=== PATIENT | male | born 1990 | race Caucasian/White ===

== ENCOUNTER 2019-03-02 09:31 | Observation (INO) | payer BC ==
[2019-03-02] MEDS ORDERED: Famotidine 20 MG/2 ML SDV IVPUSH ONE (09:43)
--- NOTE | 2019-03-02 09:43 | EDM.PDOC ---
ED HPI GENERAL MEDICAL PROBLEM - General Chief Complaint: General Stated Complaint: chest discomfort/soreness Time Seen by Provider: 03/02/19 09:31 Source of Information: Reports: Patient, Family (Mother), Old Records ([facility] EMR. No paper hospital chart available.) - History of Present Illness INITIAL COMMENTS - FREE TEXT/NARRATIVE: The patient drove himself to the emergency room for evaluation of nonspecific 6- 9/10 anterior chest wall pain with symptoms waking him up at about 1 AM this morning. He denies any recent excessive exercise, injury, etc. and has not had similar symptoms in the past. He has not taken any medications or use topical treatments for his symptoms to this point. The patient denies any chest pressure , heart flutter, dizziness, orthostasis, orthopnea, diaphoresis, paresthesias, recent decreased exercise tolerance, or any other anginal-type symptoms. No recent history of abdominal pain, heartburn, nausea, diarrhea, melena, gross hematochezia, or any food intolerance, including fatty foods, etc.. The patient also denies any recent fever, cough, wheezing, dyspnea, etc.. He denies any gross hematuria, colic, current UTI symptoms. Onset: Today, Sudden Onset Date: 03/02/19 Onset Time: 13:00 Duration: Constant Location: Reports: Chest. Denies: Head, Face, Neck, Abdomen, Back, Pelvis, Upper Extremity, Left, Upper Extremity, Right, Lower Extremity, Left, Radiates to Quality: Reports: Ache, Sharp, Stabbing Severity: Moderate Improves with: Reports: Rest Worsens with: Reports: Movement Context: Reports: Other (As above). Denies: Sick Contact, Trauma Associated Symptoms: Reports: Chest Pain. Denies: Confusion, Cough, Diaphoresis , Fever/Chills, Headaches, Loss of Appetite, Malaise, Nausea/Vomiting, Rash, Shortness of Breath, Syncope, Weakness Treatments [employer]: Reports: Other (see below) (None) Anterior Chest Pain Score (Numeric/FACES): 9 - Related Data Allergies Allergy/AdvReac Type Severity Reaction Status Date / Time No Known Allergies Allergy Verified 03/02/19 09:35 Home Meds: Home Meds Insulin Aspart [NovoLOG] 0 units SQ TIDMEALS 08/26/18 [History] Insulin Glarg,Human.Rec.Analog [Lantus] 48 unit SUBCUT DAILY 08/26/18 [History] Past Medical History HEENT History: Reports: None. Denies: Allergic Rhinitis, Cataract, Glaucoma, Hard of Hearing, Impaired Vision, Macular Degeneration, Retinal Detachment Cardiovascular History: Reports: None. Denies: Afib, Aneurysm, Arrhythmia, Blood Clots/VTE/DVT, CAD, Heart Failure, Heart Murmur, High Cholesterol, Hypertension, ND, PVD, Syncope Respiratory History: Reports: Asthma, Other (See Below). 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 Gastrointestinal History: Reports: None, Gastritis, GERD. Denies: Celiac Disease, Cholelithiasis, Chronic Constipation, Chronic Diarrhea, Colon Polyp, Diverticulosis, Fecal Incontinence, GI Bleed, Hepatitis, Hiatal Hernia, Irritable Bowel Syndrome, Jaundice, Pancreatitis, PUD Genitourinary History: Reports: None. Denies: Acute Renal Failure, BPH, Chronic Renal Insuffiency, Renal Calculus, STD, Urinary Incontinence, UTI, Recurrent Musculoskeletal History: Reports: Fracture, Other (See Below). Denies: Arthritis, Back Pain, Chronic, Gout, Neck Pain, Chronic, Osteoarthritis, RA, SLE Other Musculoskeletal History: Left wrist at age 16. Right posterior mandible at age 26. Neurological History: Reports: None. Denies: Cerebral Aneurysms, Concussion, CVA, Headaches, Chronic, Head Trauma, Migraines, MS, Neuropathy, Diabetic, Neuropathy, Peripheral, Parkinson's, Seizure, TIA, Vertigo Psychiatric History: Reports: None. Denies: Abuse, Victim of, ADD, ADHD, Addiction, Anxiety, Depression, Psych Hospitalization(s), PTSD, Suicide Attempt , Suicidal Ideation Endocrine/Metabolic History: Reports: Diabetes, Type I, IDDM, Other (See Below) . Denies: Diabetes, Gestational, Diabetes, Type II, Diabetes Mellitus, Type 3c , Hypothyroidism Other Endocrine/Metabolic History: Type 1 IDDM at age 16. Hematologic History: Reports: None. Denies: Anemia, Blood Transfusion(s), Iron Deficiency Immunologic History: Reports: None. Denies: AIDS, HIV, SLE Oncologic (Cancer) History: Reports: None. Denies: Basal Cell Carcinoma, Hodgkin's Lymphoma, Leukemia, Lymphoma, Malignant Melanoma, Non-Hodgkin's Lymphoma, Squamous Cell Carcinoma Dermatologic History: Reports: None. Denies: Eczema, Psoriasis - Infectious Disease History Infectious Disease History: Reports: Chicken Pox. Denies: C-Difficile, Measles , Meningitis, Mononucleosis, MRSA, Mumps, Pertussis (Whooping Cough), Rheumatic Fever, Rubella, Scarlet Fever, Shingles, TB, VRE - Past Surgical History Head Surgeries/Procedures: Reports: None HEENT Surgical History: Reports: Adenoidectomy, Tonsillectomy, Other (See Below) . Denies: Eye Surgery, Laser Surgery, LASIK, Myringotomy w Tube(s), Naso-Sinus Surgery, Oral Surgery Other HEENT Surgeries/Procedures: Tonsillectomy and adenoidectomy at age 7. Cardiovascular Surgical History: Reports: None. Denies: Varicose Respiratory Surgical History: Reports: None. Denies: Thoracentesis GI Surgical History: Reports: None. Denies: Appendectomy, Cholecystectomy, Colonoscopy, EGD, Hernia, Abdominal, Hernia, Inguinal, Hernia Repair/Other Male Surgical History: Reports: Circumcision, Other (See Below). Denies: Vasectomy Other Male Surgeries/Procedures: Circumcision as an . Endocrine Surgical History: Reports: None. Denies: Thyroid Biopsy Neurological Surgical History: Reports: None. Denies: C-Spine, Discectomy, Laminectomy, Lumbar Spine, Sacral Spine, Spinal Fusion, Vertebroplasty Musculoskeletal Surgical History: Reports: None. Denies: Arthroscopic Procedure , Carpal Tunnel, Ganglion Cyst, Joint Replacement, ORIF, Shoulder Surgery Oncologic Surgical History: Reports: None Dermatological Surgical History: Reports: None - Past Imaging History Past Imaging History: Reports: None Social & Family History - Family History HEENT: Reports: None. Denies: Glaucoma, Macular Degeneration, Retinal Detachment Cardiac: Reports: Arrhythmia, Heart Murmur, Other (See Below). Denies: Afib, Aneurysm, Blood Clots/VTE/DVT, High Cholesterol, Hypertension, ND, PVD/COD, Syncope Other Cardiac Family History: Father with WPW syndrome with known type of valvular disorder. Hypertension in maternal and paternal grandmothers and and maternal grandfather Respiratory: Reports: Asthma, Sleep Apnea, Other (See Below). Denies: COPD, PE , Pneumothorax Other Respiratory Family Hisory: Mother with asthma. Paternal grandfather with sleep apnea. GI: Reports: Cholelithiasis, Other (See Below). Denies: Celiac Disease, Colon Polyps, GERD, Inflammatory Bowel Disease, Irritable Bowel Syndrome, PUD Other GI Family History: Mother with cholecystectomy. : Reports: Diabetic Nephropathy, Renal Calculus, Renal Disease/Insufficiency. Denies: Dialysis Other Family History: Maternal grandmother with renal failure and diabetic nephropathy. Maternal grandfather with urolithiasis. OBGYN: Reports: None. Denies: Endometriosis, Recurrent Spontaneous Musculoskeletal: Reports: Arthritis, Gout, Other (See Below). Denies: RA, SLE Other Musculoskeletal Family History: Maternal grandmother with gout. Neurological: Reports: None. Denies: Alzheimers Disease, CVA, Dementia, Migraines, MS, Parkinson's, Seizure, TIA Psychiatric: Reports: Anxiety, Depression, Psych Hospitalization(s), Other (See Below). Denies: Abuse, Victim of, ADD, ADHD, PTSD, Suicide Attempt Other Psychiatric Family History: Anxiety depression disorder in father with history of suicidal ideation and history of inpatient care. Endocrine/Metabolic: Reports: Diabetes, type II, IDDM, Other (See Below). Denies: Diabetes, Type I, Hypothyroidism Other Endocrine/Metabolic Family History: Maternal grandmother with diabetes mellitus. Hematologic: Reports: None. Denies: Anemia, SLE Immunologic: Reports: None. Denies: AIDS, HIV, SLE Dermatologic: Reports: None. Denies: Eczema, Psoriasis Oncologic: Reports: None. Denies: Colon, Hodgkin's Lymphoma, Leukemia, Lymphoma , Non-Hodgkin's Lymphoma, Prostate, Skin - Tobacco Use Smoking Status *Q: Never Smoker Tobacco Use Within Last Twelve Months: No Used Tobacco, but Quit: No Smoking Cessation Information Provided To Patient: No Second Hand Smoke Exposure: No Second Hand Smoke Education Provided: No - Caffeine Use Caffeine Use: Reports: Coffee (34 pots per day), Soda (1 soda per week). Denies: Energy Drinks, Tea - Alcohol Use Alcohol Use History: Yes Days Per Week of Alcohol Use: 2 Number of Drinks Per Day: 5 Number of Drinks Per Day Comment: Usually beer. DWI at age 24 with no history of alcohol abuse or treatment. 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 ED EXAM, GENERAL - Physical Exam Exam: See Below Exam Limited By: No Limitations General Appearance: Alert, WD/WN, No Apparent Distress Eye Exam: Bilateral Eye: EOMI, Normal Inspection (No nystagmus), PERRL Ears: Normal External Exam, Normal Canal, Hearing Grossly Normal, Normal TMs Nose: Normal Inspection, Normal Mucosa, No Blood Throat/Mouth: Normal Inspection, Normal Lips, Normal Teeth, Normal Gums, Normal Oropharynx, Normal Voice, No Airway Compromise. No: Dysphagia, Perioral Cyanosis Head: Atraumatic, Normocephalic. No: Facial Swelling, Facial Tenderness, Sinus Tenderness Neck: Normal Inspection, Supple, Non-Tender, Full Range of Motion. No: Lymphadenopathy (L), Lymphadenopathy (R), Thyromegaly Respiratory/Chest: No Respiratory Distress, Lungs Clear, Normal Breath Sounds, No Accessory Muscle Use. No: Chest Non-Tender (Moderate reproducible anterior mid and superior chest wall discomfort.), Pleural Rub, Retractions Cardiovascular: Normal Peripheral Pulses, Regular Rate, Rhythm, No Edema, No Gallop, No JVD, No Murmur, No Rub. No: Gallop/S3, Gallop/S4, Friction Rub Peripheral Pulses: 2+: Radial (L), Radial (R), Dorsalis Pedis (L), Dorsalis Pedis (R) GI/Abdominal: Normal Bowel Sounds, Soft, Non-Tender, No Organomegaly, No Distention, No Abnormal Bruit, No Mass, Pelvis Stable. No: Guarding (Male) Exam: Deferred Rectal (Males) Exam: Deferred Back Exam: Normal Inspection, Full Range of Motion. No: CVA Tenderness (L), CVA Tenderness (R), Muscle Spasm Extremities: Normal Inspection, Normal Range of Motion, Non-Tender, No Pedal Edema, Normal Capillary Refill. No: Sigrid's Sign Neurological: Alert, Oriented, CN II-XII Intact, Normal Cognition, Normal Gait, No Motor/Sensory Deficits Psychiatric: Normal Affect, Normal Mood Skin Exam: Warm, Dry, Intact, Normal Color, No Rash. No: Diaphoretic, Ecchymosis, Petechiae, Wound/Incision Lymphatic: No Adenopathy EKG INTERPRETATION EKG Date: 03/02/19 Time: 09:53 Rhythm: NSR Rate (Beats/Min): 75 [place]: Normal P-Wave: Present (Mild diffuse biphasic P waves) QRS: Normal (0.09 seconds) ST-T: Normal QT: Normal OH/PQ Interval: 0.14 seconds with pulmonary hypertension by EKG. Comparison: NA - No Prior EKG EKG Interpretation Comments: 1. No acute ischemic changes 2. Pulmonary hypertension by EKG Course - Vital Signs Last Recorded V/S: Last Vital Signs Temp 36.9 C 03/02/19 09:34 Pulse 80 03/02/19 09:34 Resp 16 03/02/19 09:34 BP 121/75 03/02/19 09:34 Pulse Ox 100 03/02/19 09:34 Vital Signs - 24 hr 03/02/19 03/02/19 03/02/19 09:34 09:48 10:18 Temperature [ 36.9 C Oral] Pulse, 80 84 81 Peripheral [ Right Pulse Oximetry] Respiratory 16 12 13 Rate Blood Pressure 121/75 130/82 119/76 [Left Upper Arm ] O2 Sat by Pulse 100 100 100 Oximetry 03/02/19 11:03 Temperature [ Oral] Pulse, 82 Peripheral [ Right Pulse Oximetry] Respiratory 14 Rate Blood Pressure 133/83 [Left Upper Arm ] O2 Sat by Pulse 100 Oximetry - Orders/Labs/Meds Orders: Active Orders 24 hr Category Date Time Status Cardiac Monitoring [RC] . DIRECTED Care 03/02/19 09:44 Active EKG Documentation Completion [RC] ASDIRECTED Care 03/02/19 09:44 Active Oxygen Therapy, ED [RC] PRN Care 03/02/19 09:44 Active Peripheral IV Care [RC] . DIRECTED Care 03/02/19 09:44 Active Pulse Oximetry [RC] CONTINUOUS Care 03/02/19 09:44 Active Up With Assistance [RC] PFP Care 03/02/19 09:44 Active Vital Signs [RC] PFP Care 03/02/19 09:44 Active Nothing per Oral Now Diet [DIET] Diet 03/02/19 Breakfast Active Chest 1V Frontal [CR] Stat Exams 03/02/19 09:44 Taken Lactated Ringers [Ringers, Lactated] 1,000 ml Med 03/02/19 10:41 Active IV .BOLUS Sodium Chloride 0.9% [Saline Flush] Med 03/02/19 09:43 Active 10 ml FLUSH ASDIRECTED PRN Obtain Past Medical Record [OM.PC] Urgent Oth 03/02/19 09:44 Active Peripheral IV Insertion Adult [OM.PC] Stat Oth 03/02/19 09:44 Ordered Resuscitation Status Stat Resus Stat 03/02/19 09:43 Ordered Medication Orders Lactated Ringer's (Ringers, Lactated) 1,000 mls @ 999 mls/hr IV .BOLUS ONE Stop: 03/02/19 11:41 Last Admin: 03/02/19 11:01 Dose: 999 mls/hr Sodium Chloride (Saline Flush) 10 ml FLUSH ASDIRECTED PRN PRN Reason: Keep Vein Open Last Admin: 03/02/19 11:02 Dose: 10 ml Admin: 03/02/19 11:01 Dose: 10 ml Admin: 03/02/19 10:08 Dose: 10 ml Labs: Laboratory Tests 03/02/19 03/02/19 03/02/19 Range/Units 09:52 09:52 09:52 WBC 11.0 H (4.0-10.2) K/uL RBC 5.13 (4.33-5.41) M/uL Hgb 15.9 (13.1-16.8) g/dL Hct 44.7 (39.0-49.0) % MCV 87.1 (84.0-98.0) fL MCH 31.0 (28.2-33.3) pg MCHC 35.6 (31.7-36.0) g/dL RDW 12.7 (11.2-14.1) % Plt Count 261 (150-350) K/uL Neut % (Auto) 76.3 (45.0-80.0) % Lymph % (Auto) 15.0 (10.0-50.0) % Thayer % (Auto) 8.3 (2.0-14.0) % Eos % (Auto) 0.3 (0.0-5.0) % Baso % (Auto) 0.1 (0.0-2.0) % Neut # (Auto) 8.41 H (1.40-7.00) K/uL Lymph # (Auto) 1.65 (0.50-3.50) K/uL Thayer # (Auto) 0.91 (0.00-1.00) K/uL Eos # (Auto) 0.03 (0.00-0.50) K/uL Baso # (Auto) 0.01 (0.00-0.20) K/uL PT 10.7 (9.5-12.0) SEC INR 1.0 APTT 26.1 (21.0-31.3) SEC D-Dimer, Quantitative 123 (0-400) ng/mL Sodium (136-145) mmol/L Potassium (3.5-5.1) mmol/L Chloride (98-107) mmol/L Carbon Dioxide (21.0-32.0) mmol/L BUN (7-18) mg/dL Creatinine (0.51-1.17) mg/dL Est Cr Clr Drug Dosing Estimated GFR (MDRD) mL/min Glucose (74-106) mg/dL Lactic Acid (0.4-2.0) mmol/L Uric Acid (2.6-7.2) mg/dL Calcium (8.5-10.1) mg/dL Magnesium (1.8-2.4) mg/dL Total Bilirubin (0.2-1.0) mg/dL AST (15-37) U/L ALT (12-78) U/L Alkaline Phosphatase (46-116) IU/L Creatine Kinase (26-308) U/L Creatine Kinase Index (0.0-2.5) % CK-MB (CK-2) (0.00-3.60) ng/mL Troponin I (0.000-0.056) ng/mL C-Reactive Protein (<=0.9) mg/dL NT-Pro-B Natriuret Pep (0-125) pg/mL Total Protein (6.4-8.2) g/dL Albumin (3.4-5.0) g/dL TSH, Ultra Sensitive (0.358-3.740) mIU/mL 08/09/19 08/09/19 08/09/19 Range/Units 09:52 09:52 09:52 WBC (4.0-10.2) K/uL RBC (4.33-5.41) M/uL Hgb (13.1-16.8) g/dL Hct (39.0-49.0) % MCV (84.0-98.0) fL MCH (28.2-33.3) pg MCHC (31.7-36.0) g/dL RDW (11.2-14.1) % Plt Count (150-350) K/uL Neut % (Auto) (45.0-80.0) % Lymph % (Auto) (10.0-50.0) % Thayer % (Auto) (2.0-14.0) % Eos % (Auto) (0.0-5.0) % Baso % (Auto) (0.0-2.0) % Neut # (Auto) (1.40-7.00) K/uL Lymph # (Auto) (0.50-3.50) K/uL Thayer # (Auto) (0.00-1.00) K/uL Eos # (Auto) (0.00-0.50) K/uL Baso # (Auto) (0.00-0.20) K/uL PT (9.5-12.0) SEC INR APTT (21.0-31.3) SEC D-Dimer, Quantitative (0-400) ng/mL Sodium 139 (136-145) mmol/L Potassium 3.9 (3.5-5.1) mmol/L Chloride 104 (98-107) mmol/L Carbon Dioxide 31.7 (21.0-32.0) mmol/L BUN 12 (7-18) mg/dL Creatinine 0.87 (0.51-1.17) mg/dL Est Cr Clr Drug Dosing TNP Estimated GFR (MDRD) > 60 mL/min Glucose 211 H (74-106) mg/dL Lactic Acid 1.2 (0.4-2.0) mmol/L Uric Acid 4.1 (2.6-7.2) mg/dL Calcium 8.4 L (8.5-10.1) mg/dL Magnesium 1.9 (1.8-2.4) mg/dL Total Bilirubin 0.3 (0.2-1.0) mg/dL AST 25 (15-37) U/L ALT 24 (12-78) U/L Alkaline Phosphatase 58 (46-116) IU/L Creatine Kinase 1379 H (26-308) U/L Creatine Kinase Index 0.2 (0.0-2.5) % CK-MB (CK-2) 3.40 (0.00-3.60) ng/mL Troponin I 0.024 (0.000-0.056) ng/mL C-Reactive Protein < 0.2 (<=0.9) mg/dL NT-Pro-B Natriuret Pep 105 (0-125) pg/mL Total Protein 7.1 (6.4-8.2) g/dL Albumin 3.8 (3.4-5.0) g/dL TSH, Ultra Sensitive 1.900 (0.358-3.740) mIU/mL Meds: Medications Generic Name Dose Route Start Last Admin Trade Name Freq PRN Reason Stop Dose Admin Lactated Ringer's 1,000 mls @ 999 mls/hr 03/02/19 10:41 03/02/19 11:01 Ringers, Lactated IV 03/02/19 11:41 999 mls/hr .BOLUS ONE Administration Sodium Chloride 10 ml 03/02/19 09:43 03/02/19 11:02 Saline Flush FLUSH 10 ml ASDIRECTED PRN Administration Keep Vein Open Discontinued Medications Generic Name Dose Route Start Last Admin Trade Name Freq PRN Reason Stop Dose Admin Famotidine 40 mg 03/02/19 09:43 03/02/19 10:07 Pepcid IVPUSH 03/02/19 09:44 40 mg ONETIME ONE Administration Ketorolac Tromethamine 30 mg 03/02/19 10:42 03/02/19 11:00 Toradol IVPUSH 03/02/19 10:43 30 mg ONETIME ONE Administration Methylprednisolone Sodium Succinate 125 mg 03/02/19 10:42 03/02/19 11:00 Solu-Medrol IVPUSH 03/02/19 10:43 125 mg ONETIME ONE Administration - Radiology Interpretation Free Text/Narrative:: property assessment monitor shows normal sinus rhythm in the 70s with no ectopy or arrhythmia. Chest x-ray, portable, shows no cardiomegaly, CHF, pulmonary infiltrates, pneumothorax, etc. with only borderline pulmonary obstructive disease. Departure - Departure Time of Disposition: 11:40 Disposition: Refer to Observation Condition: Good Clinical Impression: IDDM (insulin dependent diabetes mellitus) Rhabdomyolysis Qualifiers: Rhabdomyolysis type: non-traumatic Qualified Code(s): M62.82 - Rhabdomyolysis Chest pain Qualifiers: Chest pain type: other chest pain Qualified Code(s): R07.89 - Other chest pain ; R07.8 - Other chest pain - Discharge Information *PRESCRIPTION DRUG MONITORING PROGRAM REVIEWED*: Not Applicable *COPY OF PRESCRIPTION DRUG MONITORING REPORT IN PATIENT MARIUSZ: Not Applicable Forms: ED Department Discharge Care Plan Goals: See plan - Problem List & Annotations (1) Rhabdomyolysis SNOMED Code(s): 372493927 Code(s): M62.82 - RHABDOMYOLYSIS Status: Acute Priority: High Onset Date: 03/02/19 Annotation/Comment:: IV lactated Ringer's initiated in the emergency room. His CRP and renal function are normal to this point. IV Toradol and IV Solu-Medrol initiated in the emergency room. Nonspecific mild leukocytosis possibly secondary to stress reaction. Continue aggressive IV hydration with repeat blood work in the a.m. Qualifiers: Rhabdomyolysis type: non-traumatic Qualified Code(s): M62.82 - Rhabdomyolysis (2) Chest pain SNOMED Code(s): 09562907 Code(s): R07.9 - CHEST PAIN, UNSPECIFIED Status: Acute Priority: High Onset Date: 03/02/19 Annotation/Comment:: Nonspecific anterior chest wall pain likely secondary to his rhabdomyolysis as above. No true anginal complaints with chest pain protocol not initiated in the emergency room. Note EKG and cardiac enzymes are normal with only mildly changed troponin I, which is still normal. D-dimer, BNP, etc. also normal. Symptomatic relief initiated in the emergency room including IV Solu-Medrol and IV Toradol. Secondary to his history of type 1 diabetes mellitus shape standard rule out ND orders, however cardiac etiology is not readily suspected. Qualifiers: Chest pain type: other chest pain Qualified Code(s): R07.89 - Other chest pain; R07.8 - Other chest pain (3) IDDM (insulin dependent diabetes mellitus) SNOMED Code(s): 90423922 Code(s): E11.9 - TYPE 2 DIABETES MELLITUS WITHOUT COMPLICATIONS; Z79.4 - [facility] (CURRENT) USE OF INSULIN Status: Chronic Priority: Medium Annotation/Comment:: Glycosylated hemoglobin and lipid profile in the a.m. - Problem List Review Problem List Initiated/Reviewed/Updated: Yes - My Orders Last 24 Hours: My Active Orders 03/02/19 09:43 Sodium Chloride 0.9% [Saline Flush] 10 ml FLUSH ASDIRECTED PRN Resuscitation Status Stat 03/02/19 09:44 Cardiac Monitoring [RC] . DIRECTED EKG Documentation Completion [RC] ASDIRECTED Oxygen Therapy, ED [RC] PRN Peripheral IV Care [RC] . DIRECTED Pulse Oximetry [RC] CONTINUOUS Up With Assistance [RC] PFP Vital Signs [RC] PFP Chest 1V Frontal [CR] Stat Obtain Past Medical Record [OM.PC] Urgent Peripheral IV Insertion Adult [OM.PC] Stat 03/02/19 10:41 Lactated Ringers [Ringers, Lactated] 1,000 ml IV .BOLUS 03/02/19 Breakfast Nothing per Oral Now Diet [DIET] - Assessment/Plan Admission H&P: Please use this note as an admission H&P Last 24 Hours: My Active Orders 03/02/19 09:43 Sodium Chloride 0.9% [Saline Flush] 10 ml FLUSH ASDIRECTED PRN Resuscitation Status Stat 03/02/19 09:44 Cardiac Monitoring [RC] . DIRECTED EKG Documentation Completion [RC] ASDIRECTED Oxygen Therapy, ED [RC] PRN Peripheral IV Care [RC] . DIRECTED Pulse Oximetry [RC] CONTINUOUS Up With Assistance [RC] PFP Vital Signs [RC] PFP Chest 1V Frontal [CR] Stat Obtain Past Medical Record [OM.PC] Urgent Peripheral IV Insertion Adult [OM.PC] Stat 03/02/19 10:41 Lactated Ringers [Ringers, Lactated] 1,000 ml IV .BOLUS 03/02/19 Breakfast Nothing per Oral Now Diet [DIET] Assessment:: As above Plan: As above. Extensive precautions were given to the patient and his mother, who are in agreement with the treatment plan. The patient's condition is stable enough for observation status and general supervision. J Carlos Daniels M.D. at the [facility] assumes care in the a.m.
[2019-03-02] MEDS: Sodium Chloride 0.9% 10 ML Syringe FLUSH PRN ×4 (10:08→14:08)
[2019-03-02 10:21] LABS: CHLORIDE,CL 104 mmol/L (98-107); SODIUM,NA 139 mmol/L (136-145)
[2019-03-02] MEDS ORDERED: Lactated Ringers 1,000 ML IV ONE (10:41)
[2019-03-02] MEDS ORDERED: Ketorolac 30 MG/ML SDV IVPUSH ONE (10:42)
[2019-03-02] MEDS ORDERED: methylPREDNISolone Sodium Succinate 125 MG/2 ML SDV IVPUSH ONE (10:42)
[2019-03-02] MEDS ORDERED: Temazepam 15 MG Cap PO PRN (12:01)
[2019-03-02] MEDS ORDERED: Sodium Chloride 0.9% 10 ML Syringe FLUSH PRN (12:01)
[2019-03-02] MEDS ORDERED: HYDROmorphone 1 MG/ML Syringe IVPUSH PRN (13:00)
[2019-03-02] MEDS ORDERED: Insulin Lispro 100 Units/ML 3 ML Vial SUBCUT ONE (13:32)
[2019-03-02] MEDS: Lactated Ringers 1,000 ML IV SCH ×2 (14:05→21:07)
[2019-03-02] MEDS ORDERED: Ketorolac 15 MG/ML SDV IVPUSH PRN (18:00)
[2019-03-02] MEDS: Insulin Lispro 100 Units/ML 3 ML Vial SUBCUT SCH ×2 (18:23→20:59)
[2019-03-02] MEDS: traMADol 50 MG Tab PO PRN (18:34)
[2019-03-02] MEDS: Acetaminophen 325 MG Tab PO PRN (18:34)
[2019-03-03] MEDS: Lactated Ringers 1,000 ML IV SCH (03:57)
[2019-03-03 07:31] LABS: HEMOGLOBIN A1C 8.8 % (4.3-5.7)
[2019-03-03 07:44] LABS: CHLORIDE,CL 104 mmol/L (98-107); SODIUM,NA 138 mmol/L (136-145)
[2019-03-03] MEDS ORDERED: Insulin Glarg,Human.Rec.Analog 100 UNIT/ML ML SUBCUT SCH (08:00)
[2019-03-03] MEDS ORDERED: Insulin Lispro 100 Units/ML 3 ML Vial SUBCUT STA (08:02)
[2019-03-03] MEDS: Acetaminophen 325 MG Tab PO PRN (08:16)
[2019-03-03] MEDS: traMADol 50 MG Tab PO PRN (08:16)
[2019-03-03] MEDS: Insulin Lispro 100 Units/ML 3 ML Vial SUBCUT SCH ×2 (09:15→11:53)
--- NOTE | 2019-03-03 13:25 | PCM.DCSUM1 ---
Discharge Summary - Hospital Course Free Text/Narrative:: Patient's a 28-year-old who was recently admitted with rhabdomyolysis and diabetes type 1 poorly controlled.At this time his labs appear to be improving. Patient responded to IV hydration. His pain across his breast bone is minimal at this time. He will need to follow up with myself or primary for further follow up of his diabetes. Brief History: Patient is a 28-year-old admitted with rhabdomyolysis and poorly controlled diabetes at this time patient admits that he has been trying to get better control his diabetes in the last couple months this is evident by the fact that his hemoglobin A1c is down to about 8 he also had rhabdomyolysis secondary to generalized chest pain which has responded quite well to IV fluids. Diagnosis: Stroke: No - Discharge Data Discharge Date: 03/03/19 Discharge Disposition: Home, Self-Care 01 Condition: Good - Discharge Plan *PRESCRIPTION DRUG MONITORING PROGRAM REVIEWED*: Not Applicable *COPY OF PRESCRIPTION DRUG MONITORING REPORT IN PATIENT MARIUSZ: Not Applicable Prescriptions/Med Rec: Insulin Aspart [NovoLOG] 0 unit SQ ACBREAKFAST PRN 50 Days #5 pen PRN Reason: Patient will add a sliding sca Home Medications: Home Meds Insulin Aspart [NovoLOG] 0 units SQ TIDMEALS 08/26/18 [History] Insulin Glarg,Human.Rec.Analog [Lantus] 48 unit SUBCUT DAILY 08/26/18 [History] Acetaminophen [Tylenol] 650 mg PO Q4H PRN tablet 03/03/19 [Rx] Insulin Aspart [NovoLOG] 0 unit SQ ACBREAKFAST PRN 50 Days #5 pen 03/03/19 [Rx] Patient Handouts: Nonspecific Chest Pain, [id number] Forms: ED Department Discharge Referrals: Lily Villeda [facility] [Primary Care Provider] - - Discharge Summary/Plan Comment DC Time >30 min.: No - Patient Data Vitals - Most Recent: Last Vital Signs Temp 98.7 F 03/03/19 11:58 Pulse 73 03/03/19 11:58 Resp 16 03/03/19 11:58 BP 113/68 03/03/19 11:58 Pulse Ox 98 03/03/19 11:58 Weight - Most Recent: 195 lb 15.996 oz I&O - Last 24 hours: Intake & Output 03/02/19 03/03/19 03/03/19 22:59 06:59 14:59 Intake Total 2764 651 Balance 2760 651 Lab Results - Last 24 hrs: Laboratory Results - last 24 hr 03/02/19 03/02/19 03/02/19 Range/Units 14:05 16:10 16:56 WBC (4.0-10.2) K/uL RBC (4.33-5.41) M/uL Hgb (13.1-16.8) g/dL Hct (39.0-49.0) % MCV (84.0-98.0) fL MCH (28.2-33.3) pg MCHC (31.7-36.0) g/dL RDW (11.2-14.1) % Plt Count (150-350) K/uL Neut % (Auto) (45.0-80.0) % Lymph % (Auto) (10.0-50.0) % [place] % (Auto) (2.0-14.0) % Eos % (Auto) (0.0-5.0) % Baso % (Auto) (0.0-2.0) % Neut # (Auto) (1.40-7.00) K/uL Lymph # (Auto) (0.50-3.50) K/uL [place] # (Auto) (0.00-1.00) K/uL Eos # (Auto) (0.00-0.50) K/uL Baso # (Auto) (0.00-0.20) K/uL Sodium (136-145) mmol/L Potassium (3.5-5.1) mmol/L Chloride (98-107) mmol/L Carbon Dioxide (21.0-32.0) mmol/L BUN (7-18) mg/dL Creatinine (0.51-1.17) mg/dL Est Cr Clr Drug Dosing mL/min Estimated GFR (MDRD) mL/min Glucose (74-106) mg/dL POC Glucose 254 H* (65-110) mg/dl Hemoglobin A1c (4.3-5.7) % Calcium (8.5-10.1) mg/dL Total Bilirubin (0.2-1.0) mg/dL AST (15-37) U/L ALT (12-78) U/L Alkaline Phosphatase (46-116) IU/L Creatine Kinase 1249 H (26-308) U/L Creatine Kinase Index 0.2 (0.0-2.5) % CK-MB (CK-2) 3.00 (0.00-3.60) ng/mL Troponin I 0.015 (0.000-0.056) ng/mL C-Reactive Protein (<=0.9) mg/dL Total Protein (6.4-8.2) g/dL Albumin (3.4-5.0) g/dL Triglycerides (30-150) mg/dL Cholesterol (100-200) mg/dL LDL Cholesterol, Calc (0-100) mg/dL HDL Cholesterol (40-60) mg/dL Specimen Type Urincc Urine Color Light yellow Urine Appearance Clear Urine pH 5.5 (5.0-9.0) Ur Specific [place] <= 1.005 (1.005-1.030) Urine Protein Negative (NEGATIVE) mg/dL Urine Glucose (UA) >=1000 H (NEGATIVE) mg/dL Urine Ketones 15 H (NEGATIVE) mg/dL Urine Occult Blood Negative (NEGATIVE) Urine Nitrite Negative (NEGATIVE) Urine Bilirubin Negative (NEGATIVE) Urine Urobilinogen 0.2 (0.2-1.0) E.U./dL Ur Leukocyte Esterase Negative (NEGATIVE) Urine RBC Not seen /HPF Urine WBC 0-5 /HPF Ur Epithelial Cells Few /LPF Urine Bacteria Few (NONE TO FEW) /HPF 03/02/19 03/02/19 03/03/19 Range/Units 19:41 20:58 03:54 WBC (4.0-10.2) K/uL RBC (4.33-5.41) M/uL Hgb (13.1-16.8) g/dL Hct (39.0-49.0) % MCV (84.0-98.0) fL MCH (28.2-33.3) pg MCHC (31.7-36.0) g/dL RDW (11.2-14.1) % Plt Count (150-350) K/uL Neut % (Auto) (45.0-80.0) % Lymph % (Auto) (10.0-50.0) % [place] % (Auto) (2.0-14.0) % Eos % (Auto) (0.0-5.0) % Baso % (Auto) (0.0-2.0) % Neut # (Auto) (1.40-7.00) K/uL Lymph # (Auto) (0.50-3.50) K/uL [place] # (Auto) (0.00-1.00) K/uL Eos # (Auto) (0.00-0.50) K/uL Baso # (Auto) (0.00-0.20) K/uL Sodium (136-145) mmol/L Potassium (3.5-5.1) mmol/L Chloride (98-107) mmol/L Carbon Dioxide (21.0-32.0) mmol/L BUN (7-18) mg/dL Creatinine (0.51-1.17) mg/dL Est Cr Clr Drug Dosing mL/min Estimated GFR (MDRD) mL/min Glucose (74-106) mg/dL POC Glucose 236 H 283 H* (65-110) mg/dl Hemoglobin A1c (4.3-5.7) % Calcium (8.5-10.1) mg/dL Total Bilirubin (0.2-1.0) mg/dL AST (15-37) U/L ALT (12-78) U/L Alkaline Phosphatase (46-116) IU/L Creatine Kinase 1199 H (26-308) U/L Creatine Kinase Index 0.3 (0.0-2.5) % CK-MB (CK-2) 3.30 (0.00-3.60) ng/mL Troponin I 0.021 (0.000-0.056) ng/mL C-Reactive Protein (<=0.9) mg/dL Total Protein (6.4-8.2) g/dL Albumin (3.4-5.0) g/dL Triglycerides (30-150) mg/dL Cholesterol (100-200) mg/dL LDL Cholesterol, Calc (0-100) mg/dL HDL Cholesterol (40-60) mg/dL Specimen Type Urine Color Urine Appearance Urine pH (5.0-9.0) Ur Specific [place] (1.005-1.030) Urine Protein (NEGATIVE) mg/dL Urine Glucose (UA) (NEGATIVE) mg/dL Urine Ketones (NEGATIVE) mg/dL Urine Occult Blood (NEGATIVE) Urine Nitrite (NEGATIVE) Urine Bilirubin (NEGATIVE) Urine Urobilinogen (0.2-1.0) E.U./dL Ur Leukocyte Esterase (NEGATIVE) Urine RBC /HPF Urine WBC /HPF Ur Epithelial Cells /LPF Urine Bacteria (NONE TO FEW) /HPF 03/03/19 03/03/19 03/03/19 Range/Units 07:06 07:06 07:06 WBC 12.1 H (4.0-10.2) K/uL RBC 4.63 (4.33-5.41) M/uL Hgb 14.5 (13.1-16.8) g/dL Hct 40.7 (39.0-49.0) % MCV 87.9 (84.0-98.0) fL MCH 31.3 (28.2-33.3) pg MCHC 35.6 (31.7-36.0) g/dL RDW 12.4 (11.2-14.1) % Plt Count 218 (150-350) K/uL Neut % (Auto) 72.8 (45.0-80.0) % Lymph % (Auto) 20.2 (10.0-50.0) % [place] % (Auto) 6.6 (2.0-14.0) % Eos % (Auto) 0.2 (0.0-5.0) % Baso % (Auto) 0.2 (0.0-2.0) % Neut # (Auto) 8.77 H (1.40-7.00) K/uL Lymph # (Auto) 2.43 (0.50-3.50) K/uL [place] # (Auto) 0.80 (0.00-1.00) K/uL Eos # (Auto) 0.03 (0.00-0.50) K/uL Baso # (Auto) 0.02 (0.00-0.20) K/uL Sodium 138 (136-145) mmol/L Potassium 3.8 (3.5-5.1) mmol/L Chloride 104 (98-107) mmol/L Carbon Dioxide 28.7 (21.0-32.0) mmol/L BUN 11 (7-18) mg/dL Creatinine 0.65 (0.51-1.17) mg/dL Est Cr Clr Drug Dosing 189.03 mL/min Estimated GFR (MDRD) > 60 mL/min Glucose 370 H (74-106) mg/dL POC Glucose (65-110) mg/dl Hemoglobin A1c 8.8 H (4.3-5.7) % Calcium 8.1 L (8.5-10.1) mg/dL Total Bilirubin 0.3 (0.2-1.0) mg/dL AST 21 (15-37) U/L ALT 23 (12-78) U/L Alkaline Phosphatase 51 (46-116) IU/L Creatine Kinase 659 H (26-308) U/L Creatine Kinase Index 0.4 (0.0-2.5) % CK-MB (CK-2) 2.60 (0.00-3.60) ng/mL Troponin I 0.018 (0.000-0.056) ng/mL C-Reactive Protein 0.2 (<=0.9) mg/dL Total Protein 6.0 L (6.4-8.2) g/dL Albumin 3.0 L (3.4-5.0) g/dL Triglycerides 80 (30-150) mg/dL Cholesterol 133 (100-200) mg/dL LDL Cholesterol, Calc 66 (0-100) mg/dL HDL Cholesterol 51 (40-60) mg/dL Specimen Type Urine Color Urine Appearance Urine pH (5.0-9.0) Ur Specific [place] (1.005-1.030) Urine Protein (NEGATIVE) mg/dL Urine Glucose (UA) (NEGATIVE) mg/dL Urine Ketones (NEGATIVE) mg/dL Urine Occult Blood (NEGATIVE) Urine Nitrite (NEGATIVE) Urine Bilirubin (NEGATIVE) Urine Urobilinogen (0.2-1.0) E.U./dL Ur Leukocyte Esterase (NEGATIVE) Urine RBC /HPF Urine WBC /HPF Ur Epithelial Cells /LPF Urine Bacteria (NONE TO FEW) /HPF 03/03/19 03/03/19 03/03/19 Range/Units 07:36 10:41 12:58 WBC (4.0-10.2) K/uL RBC (4.33-5.41) M/uL Hgb (13.1-16.8) g/dL Hct (39.0-49.0) % MCV (84.0-98.0) fL MCH (28.2-33.3) pg MCHC (31.7-36.0) g/dL RDW (11.2-14.1) % Plt Count (150-350) K/uL Neut % (Auto) (45.0-80.0) % Lymph % (Auto) (10.0-50.0) % [place] % (Auto) (2.0-14.0) % Eos % (Auto) (0.0-5.0) % Baso % (Auto) (0.0-2.0) % Neut # (Auto) (1.40-7.00) K/uL Lymph # (Auto) (0.50-3.50) K/uL [place] # (Auto) (0.00-1.00) K/uL Eos # (Auto) (0.00-0.50) K/uL Baso # (Auto) (0.00-0.20) K/uL Sodium (136-145) mmol/L Potassium (3.5-5.1) mmol/L Chloride (98-107) mmol/L Carbon Dioxide (21.0-32.0) mmol/L BUN (7-18) mg/dL Creatinine (0.51-1.17) mg/dL Est Cr Clr Drug Dosing mL/min Estimated GFR (MDRD) mL/min Glucose (74-106) mg/dL POC Glucose 404 H* 389 H* 246 H (65-110) mg/dl Hemoglobin A1c (4.3-5.7) % Calcium (8.5-10.1) mg/dL Total Bilirubin (0.2-1.0) mg/dL AST (15-37) U/L ALT (12-78) U/L Alkaline Phosphatase (46-116) IU/L Creatine Kinase (26-308) U/L Creatine Kinase Index (0.0-2.5) % CK-MB (CK-2) (0.00-3.60) ng/mL Troponin I (0.000-0.056) ng/mL C-Reactive Protein (<=0.9) mg/dL Total Protein (6.4-8.2) g/dL Albumin (3.4-5.0) g/dL Triglycerides (30-150) mg/dL Cholesterol (100-200) mg/dL LDL Cholesterol, Calc (0-100) mg/dL HDL Cholesterol (40-60) mg/dL Specimen Type Urine Color Urine Appearance Urine pH (5.0-9.0) Ur Specific [place] (1.005-1.030) Urine Protein (NEGATIVE) mg/dL Urine Glucose (UA) (NEGATIVE) mg/dL Urine Ketones (NEGATIVE) mg/dL Urine Occult Blood (NEGATIVE) Urine Nitrite (NEGATIVE) Urine Bilirubin (NEGATIVE) Urine Urobilinogen (0.2-1.0) E.U./dL Ur Leukocyte Esterase (NEGATIVE) Urine RBC /HPF Urine WBC /HPF Ur Epithelial Cells /LPF Urine Bacteria (NONE TO FEW) /HPF JASON Results - Last 24 hrs: Microbiology 03/02/19 16:10 Urine Culture - Preliminary Urine, Clean Catch NO GROWTH AFTER 1 DAY Med Orders - Current: Current Medications Acetaminophen (Tylenol) 650 mg PO Q4H PRN PRN Reason: Pain Last Admin: 03/03/19 08:16 Dose: 650 mg Hydromorphone HCl (Dilaudid) 1 mg IVPUSH Q4H PRN PRN Reason: Pain (severe 7-10) Lactated Ringer's (Ringers, Lactated) 1,000 mls @ 150 mls/hr IV ASDIRECTED [facility] Last Admin: 03/03/19 03:57 Dose: 150 mls/hr Insulin Glargine (Lantus) 48 unit SUBCUT DAILY [facility] Last Admin: 03/03/19 07:48 Dose: 48 unit Insulin Human Lispro (Humalog) 0 unit SUBCUT QIDACANDBED [facility]; Protocol Last Admin: 03/03/19 11:53 Dose: 10 units Ketorolac Tromethamine (Toradol) 15 mg IVPUSH Q6H PRN PRN Reason: Pain Stop: 03/07/19 12:51 Sodium Chloride (Saline Flush) 10 ml FLUSH ASDIRECTED PRN PRN Reason: Keep Vein Open Last Admin: 03/02/19 14:08 Dose: 10 ml Sodium Chloride (Saline Flush) 10 ml FLUSH Q12HR PRN PRN Reason: Keep Vein Open Temazepam (Restoril) 15 mg PO BEDTIME PRN PRN Reason: Insomnia Tramadol HCl (Ultram) 50 mg PO Q6H PRN PRN Reason: Pain (moderate 4-6) Last Admin: 03/03/19 08:16 Dose: 50 mg Discontinued Medications Famotidine (Pepcid) 40 mg IVPUSH ONETIME ONE Stop: 03/02/19 09:44 Last Admin: 03/02/19 10:07 Dose: 40 mg Lactated Ringer's (Ringers, Lactated) 1,000 mls @ 999 mls/hr IV .BOLUS ONE Stop: 03/02/19 11:41 Last Admin: 03/02/19 11:01 Dose: 999 mls/hr Insulin Human Lispro (Humalog) 6 unit SUBCUT ONETIME ONE Stop: 03/02/19 13:33 Last Admin: 03/02/19 14:05 Dose: 6 unit Insulin Human Lispro (Humalog) 10 unit SUBCUT NOW STA Stop: 03/03/19 08:03 Last Admin: 03/03/19 08:13 Dose: 10 units Ketorolac Tromethamine (Toradol) 30 mg IVPUSH ONETIME ONE Stop: 03/02/19 10:43 Last Admin: 03/02/19 11:00 Dose: 30 mg Methylprednisolone Sodium Succinate (Solu-Medrol) 125 mg IVPUSH ONETIME ONE Stop: 03/02/19 10:43 Last Admin: 03/02/19 11:00 Dose: 125 mg
== END 2019-03-03 14:30 | disposition home or self-care (01) ==
LOC: LL.ED 09:31 → LL.MS 11:33
PROVIDERS: ADMIT Family Medicine; ATTEND Family Medicine
DX: M62.82 Rhabdomyolysis (principal); E10.65 Type 1 diabetes mellitus with hyperglycemia; J45.909 Unspecified asthma, uncomplicated; K21.9 Gastro-esophageal reflux disease without esophagitis; I27.20 Pulmonary hypertension, unspecified; Z79.4 Long term (current) use of insulin
CPT/HCPCS: 36415; 71045; 80053; 80061; 81001; 82550; 82553; 82962; 83036; 83605; 83735; 83874; 83880; 84443; 84484; 84550; 85025; 85379; 85610; 85730; 86140; 87086; 93005; 96361; 96374; 96375; 99285; A9270; J1815; J1885; J2930; J3490; J7120; G0378

== ENCOUNTER 2019-07-12 01:04 | Emergency (ER) | payer BC ==
[2019-07-12] MEDS ORDERED: Sodium Chloride 0.9% 10 ML Syringe FLUSH PRN (01:30)
[2019-07-12] MEDS ORDERED: diphenhydrAMINE 50 MG/ML SDV IVPUSH ONE (01:40)
[2019-07-12] MEDS ORDERED: LORazepam 2 MG/ML SDV IVPUSH ONE (01:40)
[2019-07-12 02:20] LABS: CHLORIDE,CL 104 mmol/L (98-107); SODIUM,NA 142 mmol/L (136-145)
--- NOTE | 2019-07-12 02:51 | EDM.PDOC ---
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 fluids are to be encouraged. (4) Hypokalemia SNOMED Code(s): 38933008 Code(s): E87.6 - HYPOKALEMIA Status: Acute Priority: Medium Current Visit: Yes Onset Date: 07/12/19 Annotation/Comment:: Potassium chloride given in the emergency room. Observe for now. Close follow-up by regular provider. (5) Hypomagnesemia SNOMED Code(s): 909905021 Code(s): E83.42 - HYPOMAGNESEMIA Status: Acute Priority: Medium Current Visit: Yes Onset Date: 07/12/19 Annotation/Comment:: Observe for now. Close follow-up by regular provider as per discharge instructions. Consider magnesium oxide supplementation depending on follow-up blood work results. - Problem List Review Problem List Initiated/Reviewed/Updated: Yes - My Orders Last 24 Hours: My Active Orders 07/12/19 00:55 Blood Glucose Check, Bedside [RC] STAT 07/12/19 01:30 Cardiac Monitoring [RC] STAT EKG Documentation Completion [RC] ASDIRECTED Oxygen Therapy, ED [RC] PRN Peripheral IV Care [RC] . DIRECTED Pulse Oximetry [RC] CONTINUOUS Up With Assistance [RC] ASDIRECTED Vital Signs [RC] PFP Chest 1V Frontal [CR] Stat Head wo Cont [CT] Stat Sodium Chloride 0.9% [Saline Flush] 10 ml FLUSH ASDIRECTED PRN Obtain Past Medical Record [OM.PC] Stat Peripheral IV Insertion Adult [OM.PC] Stat Resuscitation Status Stat 07/12/19 01:44 PROLACTIN [REF] Stat 07/12/19 02:29 Blood Glucose Check, Bedside [RC] STAT 07/12/19 Breakfast Nothing per Oral Now Diet [DIET] - Assessment/Plan Last 24 Hours: My Active Orders 07/12/19 00:55 Blood Glucose Check, Bedside [RC] STAT 07/12/19 01:30 Cardiac Monitoring [RC] STAT EKG Documentation Completion [RC] ASDIRECTED Oxygen Therapy, ED [RC] PRN Peripheral IV Care [RC] . DIRECTED Pulse Oximetry [RC] CONTINUOUS Up With Assistance [RC] ASDIRECTED Vital Signs [RC] PFP Chest 1V Frontal [CR] Stat Head wo Cont [CT] Stat Sodium Chloride 0.9% [Saline Flush] 10 ml FLUSH ASDIRECTED PRN Obtain Past Medical Record [OM.PC] Stat Peripheral IV Insertion Adult [OM.PC] Stat Resuscitation Status Stat 07/12/19 01:44 PROLACTIN [REF] Stat 07/12/19 02:29 Blood Glucose Check, Bedside [RC] STAT 07/12/19 Breakfast Nothing per Oral Now Diet [DIET] Assessment:: As above Plan: As above. Extensive precautions were given to the patient and his mother, who are in agreement with the treatment plan. See Patient Instructions for further treatment and plan.
[2019-07-12] MEDS ORDERED: levETIRAcetam 500 MG Tab PO ONE (02:52)
[2019-07-12] MEDS ORDERED: Potassium Chloride 20 MEQ Tab.ER PO ONE (02:53)
== END 2019-07-12 03:42 | disposition home or self-care (01) ==
LOC: LL.ED 01:04
DX: G40.409 Other generalized epilepsy and epileptic syndromes, not intractable, without status epilepticus (principal); E10.9 Type 1 diabetes mellitus without complications; E87.6 Hypokalemia; E83.42 Hypomagnesemia; R74.0 Nonspecific elevation of levels of transaminase and lactic acid dehydrogenase [LDH]; R22.0 Localized swelling, mass and lump, head; Z79.4 Long term (current) use of insulin
CPT/HCPCS: 36415; 70450; 71045; 80053; 80320; 82550; 82553; 82962; 83605; 83735; 83880; 84146; 84443; 84484; 84550; 85025; 85379; 85610; 85730; 93005; 96374; 96375; 99285; A9270; J1200; J2060; G0480

== ENCOUNTER 2021-08-11 07:18 | Emergency (ER) | payer BC ==
[2021-08-11] MEDS: ceFAZolin 1 GM Vial IVPUSH ONE (08:11)
[2021-08-11] MEDS: Sodium Chloride 0.9% 10 ML Syringe FLUSH PRN (08:13)
== END 2021-08-11 08:45 | disposition home or self-care (01) ==
LOC: LL.ED 07:18
DX: S61.451A Open bite of right hand, initial encounter (principal); J45.909 Unspecified asthma, uncomplicated; R56.9 Unspecified convulsions; E10.9 Type 1 diabetes mellitus without complications; Z79.899 Other long term (current) drug therapy; W54.0XXA Bitten by dog, initial encounter
CPT/HCPCS: 64450; 73130; 96374; 99283; J0690; J3490